=== PATIENT | female | born 2000 | race Caucasian/White ===

== ENCOUNTER 2023-01-29 01:23 | Inpatient (IN) ==
[2023-01-29] MEDS ORDERED: OXYTOCIN 30 UNITS/500 ML BAG IV PRN ×2 (02:07→09:53)
[2023-01-29] MEDS ORDERED: LIDOCAINE 1% LOCAL 20 ML VIAL INFIL PRN (02:07)
--- NOTE | 2023-01-29 02:10 | History & Physical Report ---
Date of Service January 29, 2023 Assessment & Plan (1) Gestational diabetes: Plan: Admit to L&D. Anticipate . Labs, EFM/toco. Desires epidural. Discussed potential for large baby, given EFW 85%ile - discussed vaginal vs c- section delivery, she would prefer attempt at vaginal delivery. Aware of potential increased risk of shoulder dystocia. She has missed multiple visits - has not been seen in OB office in 1 month. She states that she and her baby had a cold, but have been better for the past 2 weeks. I recommended urine drug screen as a screening precaution, she agreed - also stated that she has been tested for drugs throughout the . She is GBS unknown, will order PCN for GBS prophylaxis. Hourly glucose checks. T&S ordered given h/o hemorrhage. Will have hemorrhage cart available at time of delivery. History of Present Illness Chief Complaint: contractions Primary Care Provider: NO PCP 22yo @ 39 2/7, contractions. +FM, no vaginal bleeding, no leaking fluid. : 2 Full term: 1 Premature: 0 Total Number of Induced Abortions: 0 Total Number of Spontaneous Abortions: 0 Ectopics: 0 Multiple births: 0 Number of Living Children: 1 and Delivery Plans GDM *Begin monthly Growth US's @24wks PPH -bled to hgb 6.6 s/p 2upRBCs right after delivery -returned 8d later due to bleeding and got uterotonics but no blood New FOB Iron Deficiency Anemia *iron infusion x 3 CBC & Ferritin 4wks after 3rd dose. Allergies Allergy/AdvReac Type Severity Reaction Status Date / Time No Known Allergies Allergy Verified 12/29/22 11:54 Home Medications Medication Instructions Recorded Confirmed Type acetone (urine) test (Ketone Urine #50 ea 07/03/22 12/29/22 Rx Test strips) blood sugar diagnostic (OneTouch #150 ea 07/03/22 12/29/22 Rx Verio test strips) blood-glucose meter (OneTouch #1 ea 07/03/22 12/29/22 Rx Verio Reflect Meter) lancets 33 gauge (OneTouch Delica #150 ea 07/03/22 12/29/22 Rx Lancets) nitrofurantoin 100 mg PO BID uti in 5 11/20/22 12/29/22 Rx monohydrate/macrocrystals 100 mg days #10 caps capsule (Macrobid) iron sucrose 100 mg iron/5 mL 300 mg (15 mL) IV ONCE #15 mL 12/15/22 12/29/22 Rx intravenous solution (Venofer) Patient History Medical History Anemia Gestational diabetes History of blood transfusion Postdelivery hemorrhage Varicella vaccination Surgical History No history of previous surgery Family History Uncle Colorectal cancer Denies family history of Ovarian cancer Breast cancer Social History Smoking Status: Current every day smoker Tobacco Type: E-cigarettes / Vaping Do You Dip or Chew Tobacco: No; Preferred Language: Khmer marital status: Single marital status details: dar Schuler (20) [phone] Current Living Situation: Family and Significant Other Current Living Situation Comment: lives with fob, daughter, dog current occupational status: unemployed Feels Safe at Home: Yes Review of Systems All systems reviewed & are unremarkable except as noted in HPI & below Physical Exam Physical Exam: FHT Cat 1 Nicolaus Q 2 SVE 5/90 per RN Constitutional: WD/WN, vitals as above Respiratory: normal respiratory effort, lungs clear to auscultation no respiratory distress Cardiovascular: Rate/Rhythm: regular rate and regular rhythm Gastrointestinal (Abdomen): Inspection/Auscultation: abdomen normal to inspection Percussion/Palpation: abdomen soft; abdomen nontender Gravid. No s/s chorio or abruption. Skin: no rashes, warm and dry Psychiatric: A+Ox3, euthymic affect Results & Data Vital Signs (Past 12 Hours) Vital Signs Temp Pulse Resp BP 01/29/23 02:00 18 01/29/23 02:00 36.7 C 18 01/29/23 01:52 100 H 118/70 Coding Level of Care Code None Diagnoses Gestational diabetes O24.419
[2023-01-29] MEDS ORDERED: PENICILLIN G POTASSIUM 6 MU in DEXTROSE 5% 250 ML IV STA (02:12)
[2023-01-29] MEDS: LACTATED RINGER'S 1,000 ML IV PRN ×2 (02:30→04:19)
[2023-01-29] MEDS ORDERED: ePHEDrine sulfate 50 MG/ML AMP ONE (02:48)
[2023-01-29] MEDS ORDERED: BUPIVACAINE 0.25% PF 30 ML VIAL ONE (02:49)
[2023-01-29] MEDS ORDERED: fentaNYL 2MCG/ML ROPIVACAINE 1.25MG/ML 100 ML BAG EPI ONE (02:49)
[2023-01-29] MEDS ORDERED: SODIUM CHLORIDE 0.9% PF INJ 10 ML VIAL ONE (02:49)
[2023-01-29] MEDS ORDERED: fentaNYL citrate PF 100 MCG/2 ML VIAL ONE (02:49)
[2023-01-29] MEDS ORDERED: LIDOCAINE 2%/EPINEPHRINE 1:200,000 20 ML PF ONE (02:49)
[2023-01-29 02:56] LABS: Amphetamines+Metham, Urine Neg (Neg); Barbiturates, Urine Neg (Neg); Benzodiazepine, Urine Neg (Neg); Cocaine, Urine Neg (Neg); MDMA (Ecstacy), Urine Neg (Neg); Methadone, Urine Neg (Neg); Opiate, Urine Neg (Neg); Phencyclidine, Urine Neg (Neg)
[2023-01-29 02:57] LABS: Hematocrit (blood only) 30.3 % (37.0-47.0); Hemoglobin 9.7 g/dl (12.0-16.0); Mean Corpuscular Hemoglobin 24.9 pg (25.0-34.0); Mean Corpuscular Volume 77.9 fL (80.0-100.0); Mean Platelet Volume 10.3 fL (9.4-12.4); Platelet Count 195 K/uL (130-400); RDW Coefficient of Variation 18.6 % (11.5-14.5); RDW Standard Deviation 52.3 fL (36.4-46.3); Red Blood Count 3.89 M/uL (4.20-5.40); White Blood Count 12.24 K/ul (4.8-10.8)
--- NOTE | 2023-01-29 03:12 | Anesthesiology Consultation ---
Date of Service January 29, 2023 Assessment & Plan (1) Encounter for pre-operative examination: Chart Review Chart Review: Acceptable Risk for Labor Epidural History Height/Weight Height: 5 ft 1 in Weight: 57.606 kg Allergies Allergy/AdvReac Type Severity Reaction Status Date / Time No Known Allergies Allergy Verified 12/29/22 11:54 Medications Home Medications Medication Instructions Recorded Confirmed Last Taken acetone (urine) test (Ketone Urine #50 ea 07/03/22 12/29/22 Unknown Test strips) blood sugar diagnostic (OneTouch #150 ea 07/03/22 12/29/22 Unknown Verio test strips) blood-glucose meter (OneTouch #1 ea 07/03/22 12/29/22 Unknown Verio Reflect Meter) lancets 33 gauge (OneTouch Delica #150 ea 07/03/22 12/29/22 Unknown Lancets) nitrofurantoin 100 mg PO BID uti in 5 11/20/22 12/29/22 Unknown monohydrate/macrocrystals 100 mg days #10 caps capsule (Macrobid) iron sucrose 100 mg iron/5 mL 300 mg (15 mL) IV ONCE #15 mL 12/15/22 12/29/22 Unknown intravenous solution (Venofer) Active Medications Generic Name Dose Route Start Last Admin Trade Name Freq PRN Reason Stop Dose Admin Lactated Ringer's 1,000 mls @ 125 mls/hr 01/29/23 02:07 01/29/23 02:30 Lr IV 01/31/23 02:06 125 mls/hr .Q8H PRN Administration L&D Protocol Protocol Past Medical History Medical History Anemia Gestational diabetes History of blood transfusion Postdelivery hemorrhage Varicella vaccination Past Family History Family History Uncle Colorectal cancer Denies family history of Ovarian cancer Breast cancer Past Surgical History Surgical History No history of previous surgery Social History Smoking Status: Smoker, status unknown tobacco type: e-cigarettes Do You Dip or Chew Tobacco: No Hx Alcohol Use: No Hx Substance Use: No substance use type: does not use and former substance user Physical Exam Vital Signs Last Vital Signs Temp 36.7 C 01/29/23 02:03 Pulse 118 H 01/29/23 03:08 Resp 18 01/29/23 02:03 BP 118/70 01/29/23 01:52 Pulse Ox 100 01/29/23 03:08 Testing Laboratory Results 01/29/23 02:25 01/29/23 02:46 POC Glucose 94
[2023-01-29] MEDS ORDERED: BUPIVACAINE 0.25% PF 30 ML VIAL EPI STA (03:41)
[2023-01-29] MEDS ORDERED: SODIUM CHLORIDE 0.9% PF INJ 10 ML VIAL EPI STA (03:41)
[2023-01-29] MEDS ORDERED: NALOXONE HCL 0.4 MG/1 ML VIAL/CARP IV PRN (03:41)
[2023-01-29] MEDS ORDERED: BUPIVACAINE 0.25% PF 30 ML VIAL EPI PRN (03:41)
[2023-01-29] MEDS ORDERED: fentaNYL 2MCG/ML ROPIVACAINE 1.25MG/ML 100 ML BAG EPI PRN (03:41)
[2023-01-29] MEDS ORDERED: ONDANSETRON INJ 2 MG/ML 2 ML VIAL IV PRN (03:41)
[2023-01-29] MEDS ORDERED: SODIUM CHLORIDE 0.9% PF INJ 10 ML VIAL EPI PRN (03:41)
[2023-01-29] MEDS ORDERED: ePHEDrine sulfate 50 MG/ML AMP IV PRN (03:41)
[2023-01-29] MEDS ORDERED: fentaNYL citrate PF 100 MCG/2 ML VIAL EPI PRN (03:41)
[2023-01-29] MEDS ORDERED: LIDOCAINE 2%/EPINEPHRINE 1:200,000 20 ML PF EPI STA (03:41)
[2023-01-29] MEDS ORDERED: LIDOCAINE 2% MPF LOCAL 5 ML VIAL EPI PRN (03:41)
[2023-01-29] MEDS ORDERED: NALOXONE HCL 1 MG in SODIUM CHLORIDE 0.9% 1000ML 1,000 ML IV PRN (03:41)
[2023-01-29] MEDS ORDERED: fentaNYL citrate PF 100 MCG/2 ML VIAL EPI STA (03:41)
[2023-01-29] MEDS ORDERED: ROPIVACAINE 0.5% PF 5 MG/ML 20 ML VIAL EPI PRN (03:41)
[2023-01-29] MEDS ORDERED: PENICILLIN G POTASSIUM 3 MU in DEXTROSE 5% 100 ML IV PRN (05:12)
--- NOTE | 2023-01-29 08:24 | Labor Progress Brief Note ---
Date of Service January 29, 2023 Subjective Comfortable with epidural. FHT Cat 1 Daguao Q 2 SVE 9/100/+1, AROM clear fluid Anticipate . Assessment & Plan Admission and Anticipated Discharge Date Admission Date: January 29, 2023 Results & Data Vital Signs (Past 12 Hours) Vital Signs Temp Pulse Resp BP Pulse Ox 01/29/23 08:19 134 H 100 01/29/23 08:14 124 H 100 01/29/23 08:09 100 01/29/23 08:09 119 H 01/29/23 08:09 122 H 111/58 L 01/29/23 08:04 102 H 100 01/29/23 07:59 112 H 99 01/29/23 07:54 101 H 109/60 99 01/29/23 07:49 111 H 99 01/29/23 07:44 119 H 100 01/29/23 07:35 18 01/29/23 07:35 37.1 C 18 01/29/23 07:39 120 H 115/63 100 01/29/23 07:34 106 H 99 01/29/23 07:29 95 H 100 01/29/23 07:25 90 110/58 L 01/29/23 07:24 91 H 100 01/29/23 07:19 92 H 99 01/29/23 07:14 96 H 99 01/29/23 07:10 106 H 110/58 L 01/29/23 07:09 104 H 99 01/29/23 07:00 18 01/29/23 07:00 18 01/29/23 07:04 95 H 99 01/29/23 06:59 107 H 98 01/29/23 06:54 110 H 106/57 L 98 01/29/23 06:49 100 H 98 01/29/23 06:44 107 H 98 01/29/23 06:41 109 H 109/59 L 01/29/23 06:39 101 H 98 01/29/23 06:33 124 H 99 01/29/23 06:28 107 H 99 01/29/23 06:24 93 H 103/54 L 01/29/23 06:23 102 H 98 01/29/23 06:18 92 H 98 01/29/23 06:13 93 H 98 01/29/23 06:08 101 H 98 01/29/23 06:09 93 H 96/53 L 01/29/23 06:03 87 99 01/29/23 05:58 83 99 01/29/23 05:54 83 105/59 L 01/29/23 05:53 87 100 01/29/23 05:48 90 108/57 L 100 01/29/23 05:43 89 99 01/29/23 05:38 91 H 99 01/29/23 05:39 88 86/48 L 01/29/23 05:33 84 100 01/29/23 05:28 91 H 100 01/29/23 05:25 92 H 86/49 L 01/29/23 05:23 95 H 99 01/29/23 05:18 87 99 01/29/23 05:13 97 H 99 01/29/23 05:09 89 89/50 L 01/29/23 05:08 93 H 100 01/29/23 05:03 84 100 01/29/23 04:58 93 H 100 01/29/23 04:53 98 H 100 01/29/23 04:54 80 87/49 L 01/29/23 04:48 86 100 01/29/23 04:43 100 01/29/23 04:43 92 H 01/29/23 04:43 117 H 106/53 L 01/29/23 04:39 87 84/45 L 01/29/23 04:38 93 H 99 01/29/23 04:33 96 H 100 01/29/23 04:30 18 01/29/23 04:30 18 01/29/23 04:28 88 100 01/29/23 04:23 78 100 01/29/23 04:24 111 H 95/53 L 01/29/23 04:00 18 01/29/23 04:00 18 01/29/23 04:18 94 H 100 01/29/23 04:13 84 100 01/29/23 04:10 88 90/51 L 01/29/23 04:08 81 100 01/29/23 04:03 85 100 01/29/23 03:58 84 100 01/29/23 03:53 78 100/54 L 100 01/29/23 03:50 76 89/50 L 01/29/23 03:48 89 100 01/29/23 03:47 96 H 94/52 L 01/29/23 03:44 77 97/53 L 01/29/23 03:43 78 100 01/29/23 03:41 88 97/55 L 01/29/23 03:38 88 91/53 L 99 01/29/23 03:35 77 86/47 L 01/29/23 03:33 100 01/29/23 03:33 90 01/29/23 03:33 78 103/51 L 01/29/23 03:28 98 H 100 01/29/23 03:23 99 H 100 01/29/23 03:18 102 H 100 01/29/23 03:13 107 H 100 01/29/23 03:08 118 H 100 01/29/23 03:03 110 H 90 01/29/23 02:00 18 01/29/23 02:00 36.7 C 18 01/29/23 01:52 100 H 118/70 01/29/23 02:03 36.7 C 18 Coding Level of Care Code None Diagnoses
[2023-01-29] MEDS ORDERED: METHYLERGONOVINE MALEATE 0.2 MG/ML AMP IM ONE (09:53)
[2023-01-29] MEDS ORDERED: HYDROCORTISONE ACETATE 25 MG SUPP PR PRN (09:53)
[2023-01-29] MEDS ORDERED: IBUPROFEN 600 MG TAB PO PRN (09:53)
[2023-01-29] MEDS ORDERED: bisacodyL 10 MG SUPP PR PRN (09:53)
[2023-01-29] MEDS ORDERED: BENZOCAINE 20% AER SPR 82.5 GM CAN EXT PRN (09:53)
[2023-01-29] MEDS ORDERED: miSOPROStoL 200 MCG TAB PR ONE (09:53)
[2023-01-29] MEDS ORDERED: DIPHTHERIA/TETANUS/PERTUSSIS Vaccine (Tdap, Age 7+yrs) 0.5mL SYR/VL IM ONE (09:53)
--- NOTE | 2023-01-29 09:58 | Delivery Summary ---
Vaginal Delivery Summary Date of Service January 29, 2023 Vaginal Delivery Summary [facility] Pre-operative Diagnosis: at 39 2/7 labor hx of pph in last delivery Post-operative Diagnosis: same Procedure: epidural arom [facility] EBL: 400cc Anesthesia: epidural Procedure: The patient presented to labor and delivery in active labor. She was admitted, underwent epidural, and subsequently had arom at 9cm for clear fluid The patient pushed for 2 contractions to deliver a viable female infant in dop position. The nose and mouth were bulb suctioned on the perineum and the rest of the was then delivered without difficulty through a loose nuchal cord. The baby was vigorous. The nose and mouth were again bulb suctioned and the infant was placed in the maternal abdomen for drying and attention. Cord was clamped and cut at one minute of life. Cord blood and segment obtained. Placenta delivered spontaneous, intact with a three vessel cord. Cervix/sulci/rectum/perineum were intact. Hemostasis obtained with dilute pitocin and fundal massage, 800mcg cytotec rectally and im methergine. Apgars were 8/9. Mother and baby doing well at the end of the delivery. [facility] [place]ag[place] Delivery Charge Delivery Type Details: [facility]
--- NOTE | 2023-01-29 11:46 | Anesthesia Procedure Note ---
Date of Service January 29, 2023 Anesthesia Post Epidural Note Vital Signs Vital Signs: Temp Pulse Resp BP Pulse Ox 37.1 C 92 H 18 125/76 98 01/29/23 07:35 01/29/23 11:38 01/29/23 07:35 01/29/23 11:38 01/29/23 09:39 Notes Mental Status: alert / awake / arousable and participated in evaluation Nausea / Vomiting: adequately controlled Pain: adequately controlled Airway Patency, RR, SpO2: stable & adequate BP & HR: stable & adequate Hydration State: stable & adequate Neuraxial Anesthesia: was administered and sensory block is resolving Anesthetic Complications: no major complications apparent Epidural: Removed without complications and With tip intact
[2023-01-29] MEDS: ACETAMINOPHEN 325 MG TAB PO PRN ×2 (15:26→23:48)
[2023-01-29] MEDS: DOCUSATE SODIUM 100 MG CAP PO SCH (20:37)
[2023-01-30 06:45] LABS: Hematocrit (blood only) 31.3 % (37.0-47.0); Hemoglobin 9.3 g/dl (12.0-16.0)
--- NOTE | 2023-01-30 06:45 | Obstetrical Progress Note ---
Date of Service <Black Burden DO - Last Filed: 01/30/23 07:23> January 30, 2023 Assessment & Plan <Black Burden DO - Last Filed: 01/30/23 07:23> (1) Vaginal delivery: (2) Gestational diabetes: Plan - Feels well today. Eating well, voiding well, ambulating well. - Pain well controlled with ibuprofen 600mg Q4H PRN - Routine care -- OOB, ambulation, diet progression as tolerated - After discharge will have 6 week follow-up with Dr. Paul. - Will D/C this afternoon. Day #:: 1 <Gabriela Paul MD, FACOG - Last Filed: 01/30/23 07:29> (1) Vaginal delivery: (2) Gestational diabetes: Subjective <Black Burden DO - Last Filed: 01/30/23 07:23> Ambulation: ambulating normally Voiding: no voiding problems Passing Gas:: Yes Diet Tolerance:: regular diet Lochia:: Small Feeding Type:: bottle feeding Current Pain Level(1-10): 1 Review of Systems Denies fever, chills, sweats Denies shortness of breath, difficulty breathing, chest pain, palpitations, chest pressure. Denies breast pain. Denies dysuria. Denies headache or changes in vision. Physical Exam <Black Burden DO - Last Filed: 01/30/23 07:23> General: Alert, oriented. No acute distress. Cardiac: Regular rate and rhythm, no murmurs/rubs/gallops. Respiratory: Clear to auscultation bilaterally a/p, no wheezes/rales/rhonchi. No increased work of breathing. Symmetrical chest rise. No respiratory distress. Abdomen: Soft, nontender, nondistended. Bowel sounds present. Uterus: Uterine fundus firm, palpable 1 cm below umbilicus. Lower Extremities: No lower extremity edema or swelling. No deep calf pain. Daisy's negative bilaterally. Results & Data <Black Burden - Last Filed: 01/30/23 07:23> Vital Signs (Past 12 Hours) Vital Signs Temp Pulse Resp BP BP Pulse Ox O2 Del Method 01/30/23 03:19 36.5 C 66 18 96/60 L 99 Room Air 06/02/23 23:37 36.6 C 75 16 96/62 L 98 Room Air 01/29/23 19:02 36.6 C 90 18 103/62 98 Room Air Laboratory Results 01/30/23 06:10 <Gabriela Paul MD, FACOG - Last Filed: 01/30/23 07:29> Co-Signing Physician Notes Resident Physician Supervision Note: I interviewed and examined the patient. Discussed with Dr. Burden and agree with findings and plan as documented in the note. Any exceptions or clarifications are listed here: Doing well. Plan d/ c later today. Instructions given. Documented By: Gabriela Paul MD, FACOG Resident Activity Tracking <Black Burden DO - Last Filed: 01/30/23 07:23> Resident Involvement: Resident Care Provided Care Provided: OB Delivery
[2023-01-30] MEDS ORDERED: PRENATAL VITAMIN 1 TAB PO SCH (08:00)
[2023-01-30] MEDS: DOCUSATE SODIUM 100 MG CAP PO SCH (08:43)
[2023-01-30] MEDS ORDERED: bisacodyL 5 MG TABEC PO SCH (20:00)
== END 2023-01-30 12:40 | disposition home or self-care (01) | DRG 807 ==
LOC: OPB 01:23 → 4S1 01:32 → 4E2 13:43